=== PATIENT | female | born 1945 | race Caucasian/White ===

== ENCOUNTER 2020-06-03 19:46 | Emergency (ER) | payer MEDICARE, OTHER ==
[~2020-06-03] VITALS: Ht 165.1 cm; Wt 72.6 kg
[2020-06-03 19:58] VITALS: BP 178/79
--- NOTE | 2020-06-03 20:29 | NUR ---
covid swab done and sent to lab
--- NOTE | 2020-06-03 20:30 | NUR ---
Ivonne Peters (daughter) [phone]
--- NOTE | 2020-06-03 20:31 | NUR ---
Patient discharged to home in stable condition. Written and verbal after care instructions given. Patient verbalizes understanding of instruction. Pt ambulatory with a steady gait
== END 2020-06-03 20:31 | disposition home or self-care (01) ==
LOC: ER 19:52
DX: Z01.818 Encounter for other preprocedural examination (principal); Z20.828 Contact with and (suspected) exposure to other viral communicable diseases
CPT/HCPCS: C9803-CS; U0003-CS